=== PATIENT | male | born 1970 | race Caucasian/White ===

== ENCOUNTER 2024-09-30 07:16 | Day surgery (SDC) | payer BC ==
[~2024-09-30 07:16] MED LIST: Sodium Chloride 0.9% 10 ML Syringe FLUSH PRN; Sodium Chloride 0.9% 10 ML Syringe FLUSH SCH
[2024-09-30] MEDS ORDERED: Propofol 200 MG/20 ML SDV ONE ×2 (07:30→08:13)
[2024-09-30] MEDS: Lactated Ringers 1,000 ML IV SCH (07:30)
== END 2024-09-30 09:49 | disposition home or self-care (01) ==
LOC: JD.SDS 07:16 → EDBD 08:00 → JD.SDS 09:49
PROVIDERS: ATTEND Surgery
DX: Z12.11 Encounter for screening for malignant neoplasm of colon (principal); D12.4 Benign neoplasm of descending colon; R19.5 Other fecal abnormalities; K57.30 Diverticulosis of large intestine without perforation or abscess without bleeding; I10 Essential (primary) hypertension; E66.9 Obesity, unspecified; Z68.32 Body mass index [BMI] 32.0-32.9, adult; Z79.899 Other long term (current) drug therapy
CPT/HCPCS: 45380; 45385; J2704; J7120; 00811

== ENCOUNTER 2025-10-04 06:05 | Emergency (ER) | payer BC ==
[2025-10-04] MEDS ORDERED: Sodium Chloride 0.9% 10 ML Syringe FLUSH PRN (06:07)
[2025-10-04 06:23] LABS: BASOPHILS ABSOLUTE AUTO 0.1 K/mm3 (0.0-0.2); BASOPHILS PERCENT AUTO 1.0 % (0.0-1.0); EOSINOPHILS ABSOLUTE AUTO 0.2 K/mm3 (0.0-0.4); EOSINOPHILS PERCENT AUTO 2.2 % (0.0-6.0); IMMATURE GRAN ABSOLUTE AUTO 0.03 K/mm3 (0.00-0.05); IMMATURE GRAN PERCENT AUTO 0.4 % (0.0-0.4); LYMPHOCYTES ABSOLUTE AUTO 2.6 K/mm3 (1.0-4.8); LYMPHOCYTES PERCENT AUTO 32.5 % (24.0-44.0); MEAN PLATELET VOLUME 9.5 fl (9.4-12.4); MONOCYTES ABSOLUTE AUTO 0.5 K/mm3 (0.0-0.8); MONOCYTES PERCENT AUTO 5.7 % (0.0-8.0); NEUTROPHILS ABSOLUTE AUTO 4.7 K/mm3 (1.8-7.7); NEUTROPHILS PERCENT AUTO 58.2 % (41.0-71.0); NRBC ABSOLUTE 0.00 (0.00-0.02); NRBC PERCENT 0.0 % (0.0-0.2); PLATELET COUNT,PLT 252 K/mm3 (150-400); RED BLOOD CELL COUNT 5.75 M/mm3 (4.52-5.90); WHITE BLOOD CELL COUNT,WBC 8.02 K/mm3 (3.9-11.3)
[2025-10-04] MEDS: Iopamidol 755 Mg/ML 100 ML Bottle IVPUSH ONE (06:24)
[2025-10-04 06:50] LABS: INR 1.05
[2025-10-04 06:52] LABS: PTT,PARTIAL THROMBOPLSTIN TIME 28.4 SECONDS (21.7-31.4)
[2025-10-04 06:56] LABS: A/G RATIO 1.1 (1-2); ALANINE AMINOTRANSFERASE,ALT 29.0 U/L (16-63); ASPARTATE AMNIOTRANSFERASE,AST 19.0 U/L (15-37); BILIRUBIN TOTAL 1.0 mg/dL (0.2-1.0); BLOOD UREA NITROGEN,BUN 18.0 mg/dL (7-18); CARBON DIOXIDE,CO2 28.0 mEq/L (21-32); CHLORIDE,CL 105.0 mEq/L (98-107); CREATININE 1.2 mg/dL (0.7-1.3); EST CRCL DRUG DOSING (CG) 75.44 mL/min; ESTIMATED GFR 71.0 mL/min (>60); GLUCOSE RANDOM 111.0 mg/dL (70-99); POTASSIUM,K 3.5 mEq/L (3.5-5.1); PROTEIN TOTAL,TP 7.0 g/dl (6.4-8.2); SODIUM,NA 144.0 mEq/L (136-145); TROPONIN I HIGH SENSITIVITY 15.0 pg/mL (<=76)
== END 2025-10-04 07:21 ==
LOC: JD.ED 06:05
DX: I63.511 Cerebral infarction due to unspecified occlusion or stenosis of right middle cerebral artery (principal); I10 Essential (primary) hypertension; Z79.899 Other long term (current) drug therapy
CPT/HCPCS: 36415; 70450; 70496; 70498; 80053; 82947; 84484; 85025; 85610; 85730; 93005; 99285; A9270; Q9967; 93010